=== PATIENT | female | born 1975 | race Caucasian/White ===

== ENCOUNTER 2023-12-31 11:11 | Emergency (ER) | payer OTHER, SELFPAY ==
[2023-12-31 11:24] VITALS: BP 153/99; PULSE 104; TEMP 36.8; O2SAT 99
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
[2023-12-31] MEDS: HYDROCODONE/ACET 5-325 MG TABLET 1 TAB PO (14:23)
== END 2023-12-31 14:28 | disposition home or self-care (01) ==
PROVIDERS: Emergency Provider Emergency Medicine Emergency Medical Services
DX: S80.11XA Contusion of right lower leg, initial encounter (principal); V03.99XA Pedestrian with other conveyance injured in collision with car, pick-up truck or van, unspecified whether traffic or nontraffic accident, initial encounter; M25.562 Pain in left knee
CPT/HCPCS: 72190; 73562; 73590; 93971; 99285